=== PATIENT | male | born 1955 | race Caucasian/White ===

== ENCOUNTER 2025-02-16 08:44 | Day surgery (SDC) | payer OTHER ==
[2025-02-09 12:01] VITALS: BMI 22.6
[2025-02-16] MEDS ORDERED: MIDAZOLAM HCL 2 MG/2 ML SINGLE DOSE VIAL ONE (09:53)
[2025-02-16] MEDS ORDERED: PROPOFOL 20 ML ONE ×2 (09:58→10:19)
[2025-02-16] MEDS ORDERED: ONDANSETRON 4 MG/2 ML VIAL ONE (10:18)
[2025-02-16] MEDS ORDERED: ONDANSETRON 4 MG/2 ML VIAL IVPUSH PRN (10:36)
[2025-02-16] MEDS ORDERED: LACTATED RINGERS SOLUTION 1,000 ML IV SCH (10:45)
[2025-02-16 11:22] VITALS: TEMP 97.4
[2025-02-16 11:53] VITALS: BP 141/69; PULSE 45; RESP 18
== END 2025-02-16 11:57 | disposition home or self-care (01) ==
LOC: FASU 08:44
PROVIDERS: ATTEND Urology
PROC: 0VB07ZX Excision of Prostate, Via Natural or Artificial Opening, Diagnostic (ICD-10-PCS; principal; 2025-02-16 10:09)
DX: R97.20 Elevated prostate specific antigen [PSA] (principal)
CPT/HCPCS: 88305-TC; 88342-TC; 94760